=== PATIENT | male | born 1950 | race Caucasian/White ===

== ENCOUNTER → 2016-10-08 | Outpatient (CLI) | payer MEDICARE ==
[2016-10-08 09:51] LABS: BUN 11 mg/dL (7-18)
[2016-10-08 09:52] LABS: GFR (ESTIMATED) 75 ML/MIN (>60)
== END ==
LOC: LAB 08:48
PROVIDERS: Family Medicine
DX: E78.5 Hyperlipidemia, unspecified (principal)

== ENCOUNTER → 2017-04-03 | Outpatient (CLI) | payer MEDICARE ==
[~2017-04-03] MED LIST: MECLIZINE 25MG25 MG PO; ZOFRAN4 MG PO
[2017-04-03 10:09] LABS: BUN 10 mg/dL (7-18); GFR (ESTIMATED) 75 ML/MIN (>60); PROSTATE-SPECIFIC AG SCREEEN 0.9 ng/mL (0.0-4.0)
== END ==
LOC: LAB 08:50
PROVIDERS: Family Medicine
DX: E78.00 Pure hypercholesterolemia, unspecified (principal); G47.33 Obstructive sleep apnea (adult) (pediatric); Z12.5 Encounter for screening for malignant neoplasm of prostate
CPT/HCPCS: G0103